=== PATIENT | male | born 1995 | race Caucasian/White ===

== ENCOUNTER 2016-08-23 18:44 | Emergency (ER) | payer SELFPAY ==
[~2016-08-23] VITALS: Ht 182.9 cm; Wt 62.5 kg
[2016-08-23 19:29] VITALS: TEMP 36.7; Ht 182.9 cm; Wt 62.5 kg
[2016-08-23] MEDS ORDERED: SODIUM CHLORIDE 0.9% 1000ML 1,000 ML IV STA (21:32)
[2016-08-23] MEDS ORDERED: KETOROLAC TROMETHAMINE 30 MG/ML VIAL IV STA (21:32)
[2016-08-23 21:49] LABS: BASO % 0.1 %; BASO ABS # 0.01 K/uL (0-0.2); COMPLETE YES; EOS % 0.7 %; HEMATOCRIT 42.1 % (42-52); IG% 0.2 %; LYMPH % 17.5 %; LYMPH ABS # 1.71 K/uL (1.2-3.4); MEAN CORPUSCULAR HEMOGLOBIN 28.5 pg (25-34); MEAN CORPUSCULAR HGB CONC 35.2 g/dl (32-36); MEAN PLATELET VOLUME 9.4 fL (7.4-10.4); MONO % 7.5 %; PLATELET COUNT 246 K/uL (130-400); WHITE BLOOD COUNT 9.78 K/uL (4.8-10.8)
[2016-08-23 22:10] LABS: BUN/CREATININE RATIO 18.1 (10-20); CALCIUM 9.1 mg/dl (8.5-10.1); CREATININE 0.94 mg/dl (0.60-1.40); POTASSIUM 3.9 mmol/L (3.5-5.1)
[2016-08-23 22:10] LABS: URINE APPEARANCE CLEAR (CLEAR); URINE BILIRUBIN NEG (NEG); URINE COLOR DK YELLOW; URINE EPITHELIAL CELL AUTO >30 /lpf (0-5); URINE NITRITE NEG (NEG); URINE SPECIFIC GRAVITY 1.027 (1.000-1.030); UROBILINOGEN NEG (NEG); ZZUR CULT IF INDIC CLEAN CATCH NO
[2016-08-23 22:11] LABS: MANUAL MICROSCOPIC REQUIRED? NO; REVIEW REQ? YES
[2016-08-23 22:20] LABS: URINE MUCUS PRESENT (NONE PRSENT)
--- NOTE | 2016-08-23 22:59 | DIAGNOSTIC IMAGING REPORT ---
CT OF THE ABDOMEN AND PELVIS WITHOUT CONTRAST, STONE PROTOCOL CLINICAL HISTORY: Left lower quadrant pain. Left flank pain. COMPARISON STUDY: None. TECHNIQUE: Helical axial images of the abdomen and pelvis were obtained without IV or oral contrast according to renal stone protocol. FINDINGS: Lung bases are clear. There is minimal left hydroureteronephrosis due to a 4 mm distal left ureteral calculus located at the level the inferior sacroiliac joint. There is minimal left periureteral infiltration. Unenhanced images of the liver, spleen, adrenal glands and pancreas are normal. There is no evidence for a bowel obstruction. The appendix is normal. No additional urinary calculi are identified. IMPRESSION: 4 mm distal left ureteral calculus located at the level the inferior sacroiliac joint with minimal left hydroureteronephrosis. Electronically signed by: Bryson Christine M.D. 08/23/2016 10:57 PM Dictated Date/Time: 08/23/2016 10:54 PM
[2016-08-23] MEDS ORDERED: PERCOCET HOME PACK PO ONE (23:00)
[2016-08-23] MEDS ORDERED: OXYC-57 PO (23:24)
--- NOTE | 2016-08-23 23:26 | EMERGENCY ROOM VISIT NOTE ---
History Report prepared by Nano: Wellington Dockery Under the Supervision of: Dr. Kyaw Worley D.O. First contact with patient: 21:26 Chief Complaint: ABDOMINAL PAIN Stated Complaint: TREMENDOUS ABDOMINAL PAINS- LOWER GUT History of Present Illness The patient is a 21 year old male who presents to the Emergency Room with complaints of intermittent left lower abdominal pain beginning this evening. 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 He denies having any nausea, vomiting, diarrhea, constipation, or testicular pain, but notes having some lower left back pain. The patient denies having any medical problems, taking any medications, or past surgeries. Source of History: patient Onset: this evening Position: abdomen (LLQ) Quality: other (abdominal pain) Timing: intermittent Associated Symptoms: No back pain, No diarrhea, No nausea, No vomiting Note: The patient denies having any constipation. Review of Systems See HPI for pertinent positives & negatives. A total of 10 systems reviewed and were otherwise negative. Past Medical & Surgical Medical Problems: (1) No Known Active Medical Problems Family History No pertinent family history stated. Social History Smoking Status: Never Smoker Occupation Status: employed Current/Historical Medications No Active Prescriptions or Reported Meds Allergies Coded Allergies: No Known Allergies (Unverified , 08/23/16) Physical Exam Vital Signs Date Time Temp Pulse Resp B/P Pulse Ox O2 Delivery O2 Flow Rate FiO2 08/23/16 22:47 69 20 118/72 99 Room Air 08/23/16 21:01 76 18 143/82 98 Room Air 08/23/16 19:29 36.7 87 18 120/82 96 Room Air Physical Exam CONSTITUTIONAL/VITAL SIGNS: Reviewed / noted above. GENERAL: Non-toxic in appearance. INTEGUMENTARY: Warm, dry, and [place]. HEAD: Normocephalic. EYES: without scleral icterus or trauma. ENT/OROPHARYNX: clear and moist. LYMPHADENOPATHY/NECK: Is supple without lymphadenopathy or meningismus. RESPIRATORY: Lungs clear and equal. CARDIOVASCULAR: Regular rate and rhythm. GI/ABDOMEN: Soft. Mild left lower quadrant tenderness. No organomegaly or pulsatile mass. No rebound or guarding. Normal bowel sounds. EXTREMITIES: Warm and well perfused. BACK: Mild left CVA tenderness. NEUROLOGICAL: Intact without focal deficits. PSYCHIATRIC: normal affect. MUSCULOSKELETAL: Normally developed with good muscle tone. Medical Decision & Procedures ER Provider Diagnostic Interpretation: Radiology results as stated below per my review and radiologist interpretation: CT OF THE ABDOMEN AND PELVIS WITHOUT CONTRAST, STONE PROTOCOL FINDINGS: Lung bases are clear. There is minimal left hydroureteronephrosis due to a 4 mm distal left ureteral calculus located at the level the inferior sacroiliac joint. There is minimal left periureteral infiltration. Unenhanced images of the liver, spleen, adrenal glands and pancreas are normal. There is no evidence for a bowel obstruction. The appendix is normal. No additional urinary calculi are identified. IMPRESSION: 4 mm distal left ureteral calculus located at the level the inferior sacroiliac joint with minimal left hydroureteronephrosis. Electronically signed by: Bryson Christine M.D. 08/23/2016 10:57 PM Dictated Date/Time: 08/23/2016 10:54 PM Laboratory Results 08/23/16 21:39 Red Blood Count 5.20, Mean Corpuscular Volume 81.0, Mean Corpuscular Hemoglobin 28.5, Mean Corpuscular Hemoglobin Concent 35.2, Mean Platelet Volume 9.4, Neutrophils (%) (Auto) 74.0, Lymphocytes (%) (Auto) 17.5, Monocytes (%) (Auto) 7.5, Eosinophils (%) (Auto) 0.7, Basophils (%) (Auto) 0.1, Neutrophils # (Auto) 7.24, Lymphocytes # (Auto) 1.71, Monocytes # (Auto) 0.73, Eosinophils # (Auto) 0.07, Basophils # (Auto) 0.01 08/23/16 21:39 Test 08/23/16 21:39 08/23/16 21:48 White Blood Count 9.78 K/uL (4.8-10.8) Red Blood Count 5.20 M/uL (4.7-6.1) Hemoglobin 14.8 g/dL (14.0-18.0) Hematocrit 42.1 % (42-52) Mean Corpuscular Volume 81.0 fL (80-100) Mean Corpuscular Hemoglobin 28.5 pg (25-34) Mean Corpuscular Hemoglobin Concent 35.2 g/dl (32-36) Platelet Count 246 K/uL (130-400) Mean Platelet Volume 9.4 fL (7.4-10.4) Neutrophils (%) (Auto) 74.0 % Lymphocytes (%) (Auto) 17.5 % Monocytes (%) (Auto) 7.5 % Eosinophils (%) (Auto) 0.7 % Basophils (%) (Auto) 0.1 % Neutrophils # (Auto) 7.24 K/uL (1.4-6.5) Lymphocytes # (Auto) 1.71 K/uL (1.2-3.4) Monocytes # (Auto) 0.73 K/uL (0.11-0.59) Eosinophils # (Auto) 0.07 K/uL (0-0.5) Basophils # (Auto) 0.01 K/uL (0-0.2) RDW Standard Deviation 40.5 fL (36.4-46.3) RDW Coefficient of Variation 13.7 % (11.5-14.5) Immature Granulocyte % (Auto) 0.2 % Immature Granulocyte # (Auto) 0.02 K/uL (0.00-0.02) Anion Gap 8.0 mmol/L (3-11) Est Creatinine Clear Calc Drug Dose 110.8 ml/min Estimated GFR () 134.7 Estimated GFR (Non- 116.2 BUN/Creatinine Ratio 18.1 (10-20) Calcium Level 9.1 mg/dl (8.5-10.1) Lipase 63 U/L (73-393) Urine Color DK YELLOW Urine Appearance CLEAR (CLEAR) Urine pH 6.0 (4.5-7.5) Urine Specific [place] 1.027 (1.000-1.030) Urine Protein TRACE (NEG) Urine Glucose (UA) NEG (NEG) Urine Ketones TRACE (NEG) Urine Occult Blood 3+ (NEG) Urine Nitrite NEG (NEG) Urine Bilirubin NEG (NEG) Urine Urobilinogen NEG (NEG) Urine Leukocyte Esterase NEG (NEG) Urine WBC (Auto) 5-10 /hpf (0-5) Urine RBC (Auto) >30 /hpf (0-4) Urine Hyaline Casts (Auto) 1-5 /lpf (0-5) Urine Epithelial Cells (Auto) >30 /lpf (0-5) Urine Bacteria (Auto) NEG (NEG) Urine Renal Epithelial Cells 0-5 /lpf (0-5) Urine Mucus PRESENT (NONE PRSENT) Laboratory results as stated above per my review. Medications Administered Medications (Trade) Dose Ordered Sig/Musa Route Start Time Stop Time Status Last Admin Dose Admin Sodium Chloride (Nss 1000ml) 1,000 ml @ 999 mls/hr Q1H1M STAT IV 08/23/16 21:32 08/23/16 22:32 DC 08/23/16 22:15 999 MLS/HR Ketorolac Tromethamine (Toradol Inj) 30 mg NOW STAT IV 08/23/16 21:32 08/23/16 21:34 DC 08/23/16 22:16 30 MG ED Course 2128: Previous medical records were reviewed. The patient was evaluated in room B8. A complete history and physical examination was performed. 2131: Ordered Toradol Inj 30 mg IV, and NSS 1,000 ml @ 999 mls/hr IV. 2299: Ordered Oxycodone/Acetaminophen 1 homepack PO. 2314: On reevaluation, the patient is doing well. I discussed the results and findings with the patient. He verbalized agreement of the treatment plan. The patient was discharged home. Medical Decision Differential considered: pancreatitis, hepatitis, or acute cholecystitis, AAA, UTI, pyelonephritis, kidney stones, appendicitis, diverticulitis, shingles, bowel obstruction mesenteric ischemia, intussusception,hernia, testicular torsion. This is a 21-year-old male who presents to the ED with a chief complaint of left lower quadrant abdominal pain. The patient states that his symptoms started suddenly about 1700 hrs. He denies any testicular pain. No nausea vomiting. Vital signs are normal. CBC is normal. PRP is normal. Urine reveals 3+ blood. CT scan read and pelvis reveals a stone. It is 4 mm in the distal left ureter with minimal hydronephrosis. The patient was treated with IV Toradol as well as IV fluids. He was provided with urine strainer. He was told the results. He was given a prescription for Percocet. And Percocet home pack. He was told to take ibuprofen 600 mg every 6 hours. Impression Primary Impression: Renal colic on left side Additional Impression: Ureteral calculus, left Scribe Attestation The scribe's documentation has been prepared under my direction and personally reviewed by me in its entirety. I confirm that the note above accurately reflects all work, treatment, procedures, and medical decision making performed by me. Departure Information Dispostion Home / Self-Care Prescriptions Oxycodone/Acetaminophen 5MG/325MG (PERCOCET 5MG/325MG) Tab 1 TAB PO Q6H Y for Pain, #10 TAB Prov: Kyaw Worley D.O. 08/23/16 Referrals No Doctor, Assigned (PCP) Patient Instructions Kidney Stones, My [facility] Additional Instructions Follow-up with your doctor for further care and evaluation in 1-2 days. Return to the emergency department for worsening or new symptoms or any concerns. You have been examined and treated today on an emergency basis only. This is not a substitute for, or an effort to provide, complete comprehensive medical care. It is impossible to recognize and treat all injuries or illnesses in a single emergency department visit. It is therefore important that you follow up closely with your doctor. Call as soon as possible for an appointment. Strain urine for stone. Take Motrin 600 mg every 6 hours for pain. Percocet as prescribed for severe pain. No driving within 6 hours of use. Do not take additional Tylenol while taking Percocet. Drink plenty of fluids. Problem Qualifiers
[2016-08-23 23:43] VITALS: BP 119/76; PULSE 63; O2SAT 98
== END 2016-08-23 23:43 | disposition home or self-care (01) ==
LOC: C.EDB 18:47
DX: N23 Unspecified renal colic (principal); N20.1 Calculus of ureter